=== PATIENT | male | born 1995 | race Hispanic/Latino ===

== ENCOUNTER 2016-05-14 22:53 | Emergency (ER) | payer OTHER ==
[2016-05-14 22:58] VITALS: BP 133/54; PULSE 110; RESP 16; O2SAT 97
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
[2016-05-14 23:02] LABS: BASOPHILS % (AUTO) 0.5 % (0-3); EOSINOPHILS % (AUTO) 3.4 % (0-5); MONOCYTES % (AUTO) 5.8 % (4-12); Mean Corpuscular Hemoglobin 29.9 pg (27.0-35.0); Mean Corpuscular Volume 81.7 fL (81-100); NEUTROPHILS % (AUTO) 56.2 % (40-74); Platelet Count 455 bil/L (150-400)
[2016-05-15 01:14] VITALS: BP 123/63; PULSE 99; RESP 19; O2SAT 98
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
== END 2016-05-15 01:09 ==
LOC: EDUNIT# 22:53 → EDBD 22:53 → SED 22:53
DX: S00.83XA Contusion of other part of head, initial encounter (principal); Y04.8XXA Assault by other bodily force, initial encounter; Y92.9 Unspecified place or not applicable; Y93.89 Activity, other specified; Y99.8 Other external cause status; F10.120 Alcohol abuse with intoxication, uncomplicated; Y90.6 Blood alcohol level of 120-199 mg/100 ml; Z02.89 Encounter for other administrative examinations
CPT/HCPCS: 36415; 70450; 72125; 80053; 85025; 99284; G0480